=== PATIENT | female | born 1985 | race Caucasian/White ===

== ENCOUNTER → 2020-11-24 07:33 | Outpatient (CLI) | payer OTHER, SELFPAY ==
[2020-11-24 20:36] LABS: SARS-CoV-2 RNA PCR Negative
== END ==
PROVIDERS: PCP Internal Medicine; Visit Provider Obstetrics & Gynecology
DX: Z01.812 Encounter for preprocedural laboratory examination (principal); Z20.822 Contact with and (suspected) exposure to COVID-19
CPT/HCPCS: C9803; U0003; U0005

== ENCOUNTER → 2020-11-30 00:42 | Outpatient (CLI) | payer OTHER, SELFPAY ==
[2020-11-30 17:06] LABS: SARS-CoV-2 RNA PCR Negative
== END ==
PROVIDERS: PCP Emergency Medicine; Visit Provider Obstetrics & Gynecology
DX: Z01.812 Encounter for preprocedural laboratory examination (principal); Z20.822 Contact with and (suspected) exposure to COVID-19
CPT/HCPCS: C9803; U0003; U0005

== ENCOUNTER 2020-12-03 00:33 | Day surgery (SDC) | payer OTHER, SELFPAY ==
[2020-11-24 09:37] VITALS: BMI 28.0
--- NOTE | 2020-12-02 11:06 | PC.NURSE ---
NOTIFIED PT OF NEW SURGERY DATE/ARRIVAL TIME/PO INTAKE INSTRUCTIONS. ALSO CONFIRMED NO CHANGE IN HEALTH STATUS/MEDS SINCE INTERVIEWED ON 11/24/20.
--- NOTE | 2020-12-02 15:05 | WPDANESEPPF ---
Anes - Initial Pre Proc Eval Procedure: Operation Date: 12/03/20 07:30 Proposed Procedures p Laparoscopic Bilateral Salpingectomy - Viviane Resendiz MD Date/Time: 12/02/20 15:05 Surgeon: Viviane Resendiz MD Pre Op Diagnosis: Pelvic pain Patient Data Age: 35 Gender: F Height: 1.6 m Weight: 72 kg Allergies Allergy/AdvReac Type Severity Reaction Status Date / Time No Known Allergies Allergy Unverified 12/20/17 21:55 Home Medications Medication Instructions Recorded Confirmed Type levothyroxine 88 mcg PO DAILY 11/24/20 11/24/20 History Patient hx anesthesia problems: none Family hx anesthesia problems: none [facility] Past Medical History Medical History Anxiety Bipolar 1 disorder Depression Hypothyroidism Overweight (BMI 25.0-29.9) Smoker Social History Social History Smoking status: Current every day smoker Tobacco type: cigarettes Additional smoking assessment comments: 7-8 PER DAY 18 YRS Alcohol intake: current Alcohol use details: 2 PERMONTH Substance use: current Substance use type: marijuana Other substance usage details: DAILY FOR SLEEP Living arrangements: with family Anes - Eval Final PreProcedure Day of Procedure 12/02/20 15:05 Patient weight: overweight Heart: regular rate and rhythm Lungs: clear to auscultation and normal air movement Airway: Mallampati scale class II Neurological: alert and oriented Last oral intake: >/= 8 hours ASA classification: II Emergent: no Anesthetic plan: proceed Anesthesia type and monitoring: general ETT Informed Consent: The patient's anesthetic plan and its attendant risks and benefits were discussed with the patient/family/POA. Questions were solicited and answers provided to the satisfaction of the patient/family/POA.
[2020-12-03] VITALS (9 sets, daily range): BP systolic 111–130; BP diastolic 65–82; PULSE 52–87; RESP 15–16; TEMP 36.1–36.6; O2SAT 98–100
[2020-12-03] MEDS: ACETAMINOPHEN 500 MG TABLET 1000 MG PO (06:50)
[2020-12-03] MEDS: KETOROLAC 15 MG/ML VIAL (*BKC) IV PUSH (06:51)
[2020-12-03] MEDS: LACTATED RINGERS 1,000 ML 30 ML IV CONT ×2 (06:57→08:42)
--- NOTE | 2020-12-03 07:19 | WPDHPUPDATE1 ---
History and Physical Update Update Date/Time: 12/03/20 07:19 History and Physical has been reviewed, including an updated exam of the patient. There are NO changes in the patient's condition. Risks, benefits, and alternatives have been discussed and questions answered. Patient agrees to proceed with procedure.
--- NOTE | 2020-12-03 08:41 | W.PM.PROC2 ---
Procedure Note - Detailed Date of Procedure 12/03/20 Pre-op Diagnosis Pelvic pain Post-op Diagnosis same Procedure Performed Laparoscopic bilateral salpingectomy ( with Essure coil removal) Surgeon Viviane Resendiz MD Anesthesia general Indications Unwanted fertility Findings Normal pelvic anatomy Description of Procedure The patient was taken the operating room. She was prepped and draped in the dorsal lithotomy position after induction of general anesthesia. A 5 mm skin incision was made in the left upper quadrant of the abdominal skin. A 5 mm trocar was inserted the intra-abdominal cavity under direct visualization of the scope. Pneumoperitoneum was achieved. A 5 mm trocar was inserted in the left lower quadrant identical fashion. A 5 mm infraumbilical trocar was inserted in identical fashion as well. The bilateral fallopian tubes were removed. This was done by using a LigaSure cautery. The mesosalpinx adjacent to the tube was cauterized transected with LigaSure. This was initiated in the area the ovary and in a stepwise fashion moved medially to the area of the cornu of the uterus. Once there the fallopian tube was cauterized and transected. Th Essure coils were then exposed and were grasped and traction was applied. the coils were removed bilaterally. the tube remnant at the cornua was cauterized. This was done in identical fashion on each side. The fallopian tubes were taken out through the left lower quadrant trocar site. The pneumoperitoneum was reduced. The trocars removed. The skin was closed with subcuticular 4 Monocryl and covered with Dermabond. She was taken to cover stable condition. Sponge lap and needle counts were correct x2. Estimated Blood Loss 5 Drains No Packing No Pathology yes Complications No immediate complications Condition stable Disposition PACU
[2020-12-03] MEDS: oxyCODONE HCL (*CRX) 5 MG TAB IR PO (09:57)
== END 2020-12-03 11:03 | disposition home or self-care (01) ==
PROVIDERS: PCP Internal Medicine; Visit Provider Obstetrics & Gynecology
PROC: (CPT 49320; principal; 2020-12-03 07:30)
DX: R10.2 Pelvic and perineal pain (principal); F31.9 Bipolar disorder, unspecified; F41.9 Anxiety disorder, unspecified; E03.9 Hypothyroidism, unspecified; F17.210 Nicotine dependence, cigarettes, uncomplicated; F12.90 Cannabis use, unspecified, uncomplicated
CPT/HCPCS: 58661; 88302; A9270; J0330; J1100; J1885; J2250; J2405; J2704; J3010; J7030; J7120